=== PATIENT | male | born 1945 | race Caucasian/White ===

== ENCOUNTER → 2016-11-01 | Outpatient (CLI) | payer OTHER ==
--- NOTE | 2016-11-01 09:53 | US ---
"Right Upper Quadrant Sonogram Indication: Elevated LFTs. Comparison: CT angiogram of the chest dated July 05, 2008. Findings: The normal-sized liver, measuring 13.2 cm in the midaxillary line, has normal echogenicity and minimally heterogeneous echotexture. An indeterminate 1.2 x 1.0 cm echogenic lesion with hypoecho ic center with internal blood flow present in the anterior segment of the right lobe of the liver. No intrahepatic biliary dilation. A benign calcified granuloma in the medial segment left lobe of the l iver is unchanged since 2007. The gallbladder contains minimal mobile viscous bile and sludge. No intraluminal stones, wall thicken ing, or sonographic Robertson sign. Common bile duct is normal caliber (4 mm). Portal vein is patent. The atherosclerotic abdominal aorta is mildly dilated measuring up to 2.6 cm A P. The right kidney is unremarkable. No hydronephrosis. The right kidney measures 10.3 cm in length x 5. 6 x 4.7 cm axially. A benign 3.3 cm cyst emanates off the superior pole of the right kidney and a tin y 0.5 cm cyst resides in the central renal pelvis. No free fluid. The imaged portions of the pancreatic neck, head, and central body are normal. The pa ncreatic tail is obscured by bowel gas. Impression: 1. Minimally heterogeneous liver without biliary dilation. 2. Indeterminate 1.2 cm lesion in the right lobe of the liver may represent an atypical hemangioma. A dditional imaging is necessary to optimally characterize. Additional imaging could consist of MRI of the abdomen without and with IV contrast or multiphase CT of the abdomen with contrast. 3. Minimal gallbladder sludge. No cholelithiasis or common bile duct stone. A Follow-Up Required test result has been communicated via the [employer] | Critical Result syst em on 11/01/2016 9:47, Message ID [id number]."
== END ==
LOC: BMCIMAGING 08:31
PROVIDERS: ATTEND Internal Medicine
DX: R74.8 Abnormal levels of other serum enzymes (principal); R93.2 Abnormal findings on diagnostic imaging of liver and biliary tract

== ENCOUNTER 2018-05-23 10:00 | Inpatient (IN) | payer OTHER ==
[2018-05-23] MEDS ORDERED: IOPAMIDOL (ISOVUE 370) 100 ML BTL IV ONE (10:34)
--- NOTE | 2018-05-23 11:39 | EDPHY ---
H & P Time Seen by Provider: 05/23/18 10:12 HPI/ROS: HPI Speech slurring. 72-year-old male by ambulance. The patient presents with slurred speech and no other complaints. Onset yesterday at 12 noon. He denies headache. He has not had any loss of sensation or weakness in his extremities. No changes in vision. No balance problems or difficulty walking. No vertigo. He is not on antiplatelet or anticoagulant medication. ROS: Constitutional: No fever, no chills. As above. Eyes: No discharge. No changes in vision. ENT: No sore throat. No nasal congestion or rhinorrhea. Respiratory: No cough. No shortness of breath. Cardiac: No chest pain, no palpitations. Gastrointestinal: No abdominal pain, no vomiting, no diarrhea. Genitourinary: No hematuria. No dysuria or increased frequency with urination. Musculoskeletal: No back pain. No neck pain. No myalgias or arthralgias. Skin: No rashes. Neurological: No headache. No focal weakness or altered sensation. Past medical history: Hyperlipidemia. Takes Lipitor. Social history: Nonsmoker. No alcohol. Here by himself. Physical Exam: General Appearance: Alert, no distress. This patient is responding to questions appropriately and in full sentences. The patient states that he still has some slurring of his speech which is subtle but present. This patient appears well-hydrated and well-nourished. Eyes: Pupils equal and round no pallor or injection. No lid edema, erythema or injection. No photophobia. No nystagmus. ENT, Mouth: Mucous membranes are moist. The pharyngeal tissues are unremarkable. No edema or swelling. No asymmetry suggestive of abscess. No erythema or exudates. No tongue lacerations or abrasions. Respiratory: There are no retractions, lungs are clear to auscultation with good air movement bilaterally. Cardiovascular: Regular rate and rhythm. No murmur. Gastrointestinal: Abdomen is soft and nontender, no masses, bowel sounds normal. No focal tenderness at McBurney's point. No Robertson sign. Neurological: Motor sensory function is grossly intact. Cranial nerves are normal. Cerebellar function normal. Gait is normal. Skin: Warm and dry, no rashes. Musculoskeletal: Neck is supple and nontender. No pain on flexion of the neck. Extremities are symmetrical. All joints range without pain or impingement. Psychiatric: No agitation. No depression. Database: EKG: EKG time is 10:10 a.m.; EKG shows a sinus rhythm with a ventricular rate of 67. Right bundle branch block and left anterior fascicular block noted. Probable left ventricular hypertrophy. The TX, QRS, QT intervals are within normal limits. There are no ST-T wave changes indicative of ischemic or injury pattern. No evidence of right heart strain. Interpreted by me. Imaging: CT brain without contrast and CTA of brain and neck: Negative. Results were discussed with staff radiologist Dr. Belle Campos. MRI brain without contrast: Significant for a small acute infarct posterior inferior left frontal lobe. Results were discussed with staff radiologist Dr. Bradly Bernal. Procedures: Emergency department course: Triage vital signs reviewed. He is moderately hypertensive. IV was placed. He was placed on a satellite project site monitor. EKG obtained and reviewed by myself. He consents to CT imaging. 11:20 a.m., patient re-evaluated. Resting comfortably at this time. Repeat neurologic Assessment is nonfocal. No significant change in his speech. He is responding to questions appropriately and in full sentences. I discussed results of his CT imaging. MRI of brain without contrast will be obtained to evaluate for possible small infarct. He endorses. He will be given aspirin. 1:55 p.m., patient re-evaluated, resting comfortably at this time. Results of MRI discussed and diagnosis of small CVA discussed. Repeat neurologic assessment on the patient is unchanged from prior. Neurology paged. 2:05 p.m., spoke with on-call neurologist Dr. Hilario Becerril, case discussed with him in detail, we will admit the patient to the hospitalist service. He will consult on further management. Echocardiogram to be obtained. This plan was discussed with the patient and his was not present in the wound. He endorses. Hospitalist paged. 2:30 p.m., spoke with on-call hospitalist . Case discussed in detail with her. She accepts this patient for admission. Hospitalist team and Neurology will follow up on results of echocardiogram. Patient admitted in stable condition. No change in neurologic condition from above. Differential Diagnosis: The differential diagnosis on this patient includes but is not limited to CVA, TIA, metabolic abnormality, medication reaction. This represents a partial list of diagnoses considered. These considerations are based on history, physical exam, past history, reassessment and diagnostic testing. Smoking Status: Never smoked Constitutional: Initial Vital Signs Temperature (C) 36.8 C 05/23/18 10:04 Heart Rate 77 05/23/18 10:04 Respiratory Rate 16 05/23/18 10:04 Blood Pressure 173/85 H 05/23/18 10:04 O2 Sat (%) 97 05/23/18 10:04 O2 Delivery Mode Room Air Allergies/Adverse Reactions: No Known Allergies Allergy (Verified 05/23/18 14:28) Home Medications: Medication Instructions Recorded PARoxetine HCL [Paxil 20mg (*)] 20 mg PO SUTUTH 05/23/18 Pseudoephedrine HCl [Sudafed 12 120 mg PO DAILY PRN 05/23/18 Hour 120mg (*)] Simvastatin [Zocor] 20 mg PO MOWEFRSA 05/23/18 diphenhydrAMINE [Benadryl 25 MG 25 mg PO HS 05/23/18 (*)] Medical Decision Making - Data Points Medications Given: Aspirin (Aspirin) 325 mg PO DAILY [facility] Stop: 11/19/18 17:29 Last Admin: 05/24/18 09:10 Dose: 325 mg Atorvastatin Calcium (Lipitor) 40 mg PO DAILY ESTELLE Stop: 11/20/18 08:59 Last Admin: 05/24/18 09:10 Dose: 40 mg Diphenhydramine HCl (Benadryl) 25 mg PO HS ESTELLE Stop: 11/19/18 20:59 Last Admin: 05/23/18 20:07 Dose: 25 mg Enoxaparin Sodium (Lovenox) 40 mg SC DAILY ESTELLE Stop: 11/20/18 08:59 Last Admin: 05/24/18 09:10 Dose: 40 mg Lisinopril (Zestril) 10 mg PO DAILY ESTELLE Stop: 11/20/18 08:59 Last Admin: 05/24/18 09:10 Dose: 10 mg Point of Care Test Results: Chemistry 05/23/18 05/23/18 10:20 10:18 POC Sodium 143 mEq/L mEq/L (135-145) POC Potassium 3.9 mEq/L mEq/L (3.3-5.0) POC Chloride 107 mEq/L mEq/L (97-110) POC BUN 25 mg/dL H mg/dL (7-23) POC Creatinine 1.3 mg/dL mg/dL (0.7-1.3) POC Glucose 137 mg/dL H mg/dL (70-100) POC Troponin I 0.00 ng/mL ng/mL (0.00-0.08) ISTAT H&H 05/23/18 10:20 POC Hgb 12.6 gm/dL L gm/dL (13.7-17.5) POC Hct 37 % L % (40-51) Departure - Departure Disposition: [facility] Inpatient Acute Clinical Impression: Speech disturbance, CVA (cerebral vascular accident) Condition: Fair
[2018-05-23] MEDS ORDERED: ACETAMINOPHEN 325 MG TAB PO PRN (15:42)
[2018-05-23] MEDS ORDERED: HYDROCODONE/APAP 5/325 TAB PO PRN (15:42)
[2018-05-23] MEDS ORDERED: ONDANSETRON DISINTEGRATING 4 MG TAB PO PRN (15:42)
[2018-05-23] MEDS ORDERED: PROMETHAZINE HCL 25 MG/ML INJ IVP PRN (15:42)
[2018-05-23] MEDS ORDERED: oxyCODONE IR 5 MG TAB PO PRN (15:42)
[2018-05-23] MEDS ORDERED: ONDANSETRON 4 MG/2 ML VIAL IVP PRN (15:42)
[2018-05-23] MEDS ORDERED: PSEUDOEPHEDRINE HCL 120 MG EXT REL TAB PO PRN (15:47)
[2018-05-23] MEDS: ASPIRIN 325 MG TAB PO SCH (18:07)
--- NOTE | 2018-05-23 18:59 | PDGENHP ---
History and Physical - Chief Complaint difficulty speaking - History of Present Illness 72 yo M with PMH of HLD presenting with complaints of difficulty speaking and some facial asymetry since yesterday around noon. He notes he was at work when this began, and it began abruptly. He states that he noticed that he was having trouble ordering food, that the words came out sounding slurred. He otherwise felt well with no numbness or weakness, no visual changes. He was able to eat lunch and dinner without issues. He went home and his was concerned that he may be having a stroke given his ongoing speech difficulty and she felt that his face appeared to be drooping on one side. This morning when his symptoms remained unchanged they decided to come to the hospital for further evaluation. He has never had similar issues in the past. History Information - Allergies/Home Medication List Allergies/Adverse Reactions: No Known Allergies Allergy (Verified 05/23/18 14:28) Home Medications: PARoxetine HCL [Paxil 20mg (*)] 20 mg PO SUTUTH 05/23/18 [Last Taken 05/22/18] Pseudoephedrine HCl [Sudafed 12 Hour 120mg (*)] 120 mg PO DAILY PRN 05/23/18 [ Last Taken Unknown] Simvastatin [Zocor] 20 mg PO MOWEFRSA 05/23/18 [Last Taken 05/21/18] diphenhydrAMINE [Benadryl 25 MG (*)] 25 mg PO HS 05/23/18 [Last Taken 05/22/18] I have personally reviewed and updated: family history, medical history, social history, surgical history - Past Medical History hyperlipidemia - Surgical History Reports: no pertinent surgical hx - Family History Additional family history: Notes his family history is significant only for everyone being very healthy, father late in life had DM - Social History Smoking Status: Never smoked Alcohol Use: Rarely Drug Use: None Additional social history: x 45 years, at bedside Review of Systems Review of Systems: ROS: 10pt was reviewed & negative except for what was stated in HPI & below Physical Exam Physical Exam: Temp Pulse Resp BP Pulse Ox 36.7 C 61 24 H 187/75 H 100 05/23/18 15:58 05/23/18 15:58 05/23/18 15:58 05/23/18 15:58 05/23/18 15:58 Constitutional: no apparent distress, appears nourished Eyes: PERRL, anicteric sclera Ears, Nose, Mouth, Throat: moist mucous membranes, hearing normal Cardiovascular: regular rate and rhythym, no murmur, rub, or gallop, No edema Respiratory: no respiratory distress, no rales or rhonchi Gastrointestinal: normoactive bowel sounds, soft, non-tender abdomen Genitourinary: No hui in urethra Skin: warm, normal color Musculoskeletal: full muscle strength, no muscle tenderness Neurologic: AAOx3, facial droop, other (dysarthric speech) Psychiatric: interacting appropriately, not anxious, not encephalopathic Lab Data & Imaging Review POC Hgb 12.6 gm/dL (13.7-17.5) L 05/23/18 10:20 POC Hct 37 % (40-51) L 05/23/18 10:20 POC Sodium 143 mEq/L (135-145) 05/23/18 10:20 POC Potassium 3.9 mEq/L (3.3-5.0) 05/23/18 10:20 POC Chloride 107 mEq/L (97-110) 05/23/18 10:20 POC BUN 25 mg/dL (7-23) H 05/23/18 10:20 POC Creatinine 1.3 mg/dL (0.7-1.3) 05/23/18 10:20 POC Glucose 137 mg/dL (70-100) H 05/23/18 10:20 POC Troponin I 0.00 ng/mL (0.00-0.08) 05/23/18 10:18 Visualized and Interpreted imaging results: Yes Interpretation: Brain MRI: moderate to severe periventricular and white matter changes; acute lacunar infarct in post. inf. frontal lobe. Head/neck CTA: negative Visualized and Interpreted EKG results: Yes EKG Interpretation: Positive for: normal sinsus rhythm, right bundle branch block Assessment & Plan Assessment: Speech disturbance (Acute) CVA (cerebral vascular accident) (Acute) 72 yo M with dysarthria and facial droop present since yesterday found to have likely acute CVA # acute CVA: noted in left frontal lobe on MRI and while subtle on imaging would be c/w his presenting complaints. W/u including head/neck CTA negative so far for etiology for cva. Will obtain echo, lipid panel, Hgb A1c and monitor on telemetry. Started on asa. Neurology consulted. 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 # HLD : on simvastatin 3 days a week normally, will check lipid panel and discussed with him that his statin therapy will need to be intensified # anemia: noted on POC hgb/hct to be mildly anemic, full labs not drawn in ER, will order and f/u # IP status, given high risk presenting illness will likely require > 48 hours stay for eval/mgmt of above Patient new to my care. Old records reviewed and summarized as above. Care plan reviewed with ER doctor as above, further hx obtained from patients present at bedside.
--- NOTE | 2018-05-23 19:13 | GCON ---
[f rep st] CONSULTATION NEUROLOGIC CONSULTATION. REFERRING PHYSICIAN: Brian Daniel MD HISTORY OF PRESENT ILLNESS: Mr. Gayle is a 72-year-old gentleman, who I am asked to see in neurologi c consultation regarding acute onset of slurred speech yesterday around 11:30 in the morning. He was going to order some lunch, and had trouble with his speech in the form of slurring, but did not have word-finding difficulties. This has persisted until he came to the hospital earlier today just befo re noon. His noticed it last night, but no other symptoms were evident, and they decided to sim ply monitor it. When it did not go away, they decided to come to the hospital, which led to a head C T which was negative for acute stroke, but an MRI showed a small lacunar infarction in the left deep white matter. He has subsequently been started on aspirin therapy. He was already on a statin for h yperlipidemia. He tells me he has had some borderline hypertension, which is being monitored, but is not on blood pressure medications. He has never had a TIA or stroke in the past. He said he really was not sure what this was, and was surprised to think about a stroke. In any case, he has otherwis e been doing well with no fever, chills, nausea, vomiting, or diarrhea. No chest pain, palpitations, or shortness of breath. A few weeks ago, he had a little bit of headache, but nothing severe. PAST MEDICAL HISTORY: Notable for the hyperlipidemia. FAMILY HISTORY: Noncontributory. MEDICATIONS: When he came to the hospital he was on: 1. Paxil. 2. Zocor. 3. Sudafed. 4. Benadryl as needed in the evenings. 5. He is now on aspirin 325 mg daily, and continuing his statin therapy. ALLERGIES: None. REVIEW OF SYSTEMS: Otherwise, a 10-point review of systems was completed, and unremarkable except fo r that noted above. PHYSICAL EXAM: VITAL SIGNS: Blood pressure is 187/75, pulse of 61, respirations 24, temperature 36. 7. GENERAL: He is well-developed, in no acute distress. NECK: Supple with no bruits or masses. C ARDIAC: Regular rate and rhythm. No murmur. NEUROLOGIC: He is awake, alert, attentive with clear fluent speech and normal cognition. Pupils 3 mm and reactive. Extraocular movements are intact. No visual field loss. Normal facial sensation and strength. I do not see any definite asymmetry in fa cial movements. He has a mild, but definite persistent dysarthria. Tongue protrudes midline. Heari ng is preserved. Motor exam: Normal muscle bulk and tone with 5/5 strength and no abnormal movement . Sensation is preserved for temperature and light touch. Reflexes are 2+ and symmetric. IMAGING: I have reviewed all of his diagnostic studies as outlined above. He does not have any larg e vessel stenoses. LABS: Hematocrit is 37%. Electrolytes unremarkable. IMPRESSION: The patient has an acute ischemic stroke, most likely lacunar, related to small-vessel d isease from atherosclerosis with risk factors of hyperlipidemia, and age, and perhaps borderline hype rtension. We do not see any large vessel stenoses. A cardioembolic source is low probability, but i t is appropriate to obtain echocardiogram, which will be done tomorrow. He will remain on monitoring over the next 24 hours, and we could consider more prolonged monitoring perhaps, but low risk of arr hythmia. The patient will have speech therapy tomorrow. Once evaluations are completed, he is likel y to be able to be discharged tomorrow. We had a good discussion about risk factor, and what to look for that would lead to coming to the hospital again in the future. Total unit time of 70 minutes. He has an NIH Stroke Scale of 1. /[id number]/MODL
[2018-05-23 20:13] LABS: PLATELET COUNT 210 10^3/uL (150-400)
--- NOTE | 2018-05-23 20:35 | CPEKG ---
Test Reason : OPEN Blood Pressure : / mmHG Vent. Rate : 067 BPM Atrial Rate : 066 BPM P-R Int : 196 ms QRS Dur : 135 ms QT Int : 429 ms P-R-T Axes : 053 -64 035 degrees QTc Int : 453 ms Sinus rhythm RBBB and LAFB Left ventricular hypertrophy Confirmed by Arsalan De Luna ([id number]) on 05/23/2018 8:35:03 PM Referred By: Confirmed By:Arsalan De Luna
[2018-05-23] MEDS ORDERED: diphenhydrAMINE 25 MG CAP PO SCH (21:00)
--- NOTE | 2018-05-24 06:47 | PDMN ---
Medical Necessity Medical necessity: Pt meets inpt criteria per MD order and [facility] M-83, Stroke, Ischemic, 2 days. Est LOS>2 MN for eval/ management of acute ischemic stroke, most likely lacunar, related to small-vessel from atherosclerosis. Pt presented with speech difficulty and facial asymmetry, hypertensive w/BP up to 187/75. Brain MRI confirms acute lacunar infarct. Neuro consult, SP/PT/OT evals pending , ECHO pending. High risk presenting illness requiring inpt care.
[2018-05-24 07:26] VITALS: BP 130/105
--- NOTE | 2018-05-24 08:23 | NEUROPROG ---
Assessment: Total unit time 15 min. The patient has experienced stroke with mild dysarthria which is a about the same compared to yesterday or slightly improved. Echocardiogram is pending. Assuming nothing unusual was found then he can be discharged and follow up with me in 1 month in the office and continue on daily aspirin and daily statin therapy. Subjective: The patient is reporting no new problems overnight. He feels his speech is probably little bit better. Objective: Vital Signs Temp Pulse Resp BP Pulse Ox 36.7 C 81 16 130/105 H 98 05/24/18 00:02 05/24/18 07:26 05/24/18 07:26 05/24/18 07:26 05/24/18 07:26 Laboratory Results 05/23/18 20:00 05/23/18 20:00 He is alert and attentive with mild dysarthria. Allergies/Adverse Reactions: No Known Allergies Allergy (Verified 05/23/18 14:28)
[2018-05-24] MEDS ORDERED: ATORVASTATIN CALCIUM 10 MG TAB PO SCH (09:00)
[2018-05-24] MEDS ORDERED: LISINOPRIL 10 MG TAB PO SCH (09:00)
[2018-05-24] MEDS ORDERED: ENOXAPARIN 40 MG/0.4 ML SYR SC SCH (09:00)
[2018-05-24] MEDS ORDERED: ATORVASTATIN CALCIUM 40 MG TAB PO SCH (09:00)
[2018-05-24] MEDS ORDERED: ASPIRIN 81 MG CHEWABLE TAB PO SCH (09:00)
[2018-05-24] MEDS: ASPIRIN 325 MG TAB PO SCH (09:10)
--- NOTE | 2018-05-24 11:37 | ASMTCMCOM ---
CM Note CM Note Notes: Patient admitted after suffering an acute CVA at home. He was seen by neurology today and will likely discharge soon with outpatient follow-up. PT/OT/MOTOR VEHICLE FIELD REPRESENTATIVE will also evaluate. Patient lives with his and is normally independent and healthy. Case Management will assist if any discharge needs are identified. Date Signed: 05/24/2018 10:32 AM Electronically Signed By:Maria Eugenia Jones RN
--- NOTE | 2018-05-24 11:43 | PDDCSUM ---
Discharge Summary Discharge Summary: Dates of service 05/23-05/24/18 Consultations: neurology Procedures performed: head CT, brain MRI, head/neck CTA 72 yo M with dysarthria and facial droop present since yesterday found to have likely acute CVA # acute CVA: noted in left frontal lobe on MRI likely lacunar infarct. W/u including head/neck CTA negative so far for etiology for cva. Will obtain echo, lipid panel, Hgb A1c and monitor on telemetry. Started on asa. Neurology consulted. TECHNOLOGY LEAD evaluated and cleared for discharge. # HTN: patient denies hx of htn in the past but has had elevated bp since being here and with lacunar infarct this is likely underlying risk factor. dc on lisinopril, will need to f/u with PCP to determine if dose needs to be increased # HLD : on simvastatin 3 days a week normally, LDL above goal, will change to full dose atorvastatin # anemia: noted on POC hgb/hct to be mildly anemic, recommend op f/u DC home f/u with neurology and PCP in next week > 35 min spent in dc of patient more than half in coordination of care Patient improved more quickly than expected leading to early discharge
--- NOTE | 2018-05-24 12:32 | ECHO ---
[email or web address] [address] [address] Main: [phone] Fax: Transthoracic Echocardiogram Name: DAMARIS THOMASON MR#: [id number] Study Date: 05/24/2018 Study Time: 08:22 AM Date of : 1945 Age: 72 year(s) Height: 167.6 cm (66 in.) Weight: 80.74 kg (178 lb.) BSA: 1.9 m2 Gender: Male Examination: Echo with Agitated Saline Indication: Cerebrovascular: prior CVA, Aphasia Image Quality: Contrast: Requested by: Brian Daniel BP: 140 mmHg/68 mmHg Heart Rate: Rhythm: Normal sinus rhythm Indication: Cerebrovascular: prior CVA, Aphasia Procedure Staff Biochemistry Technician: Jesus Campbell RDCS Reading Physician: Paul Curran MD Requesting Provider: Conclusions: Normal size left ventricle. No LV hypertrophy. Normal global systolic LV function. EF is 68 %. No regional wall motion abnormality. An agitated saline study was performed and was negative for intracardiac shunting. Trivial mitral valve regurgitation. There is mild to moderate calcification of the aortic valve with moderate aortic insufficiency.. The tricuspid valve is normal in appearance and function. Mild tricuspid regurgitation is present. Measurements: Chambers Valvular Assessment AV/MV Valvular Assessment TV/PV Normal Normal Normal Name Value Range Name Value Range Name Value Range Ao Radha (MM): 3.4 cm (2.2 cm-3.7 AV Vmax: 2.08 m/s (1 m/s-1.7 TR Vmax: 2.40 mm/s ( - ) cm) m/s) TR PGmax: 23 mmHg ( - ) IVSd (2D): 0.9 cm (0.6 cm-1.1 AV maxP mmHg ( - ) syst. PAP: 28 mmHg ( - ) cm) AV meanP mmHg ( - ) PV Vmax: 0.68 m/s (0.6 m/s-0.9 LVDd (2D): 4.8 cm (4.2 cm-5.9 MICHEL (VTI): 1.5 cm ( - ) m/s) cm) AR (PHT): 865 ms ( - ) PV PGmax: 2 mmHg ( - ) LVDs (2D): 3.0 cm (2.1 cm-4 MV E Vmax: 0.67 m/s ( - ) cm) MV A Vmax: 1.06 m/s ( - ) LVPWd (2D): 0.9 cm (0.6 cm-1 cm) MV E/A: 0.63 ( - ) LVOTd 2.2 cm 2.2 cm mm MV meanP mmHg ( - ) LVEF (2D): 68 (>=54 %) MVA (Vmax): 1.9 m/s ( - ) Continued Measurements: Chambers Valvular Assessment AV/MV Valvular Assessment TV/PV Patient: DAMARIS THOMASON Study Date: 05/24/2018 Page 1 of 2 08:22 AM Name Value Name Value Name Value LADs Lon.5 cm MV VTI: 38.50 cm CVP (est.): 5 mmHg LA Area: 14.8 cm2 AR Vmax: 4.54 cm/s LA Volume: 37 ml AR ERO: 0.120 cm2 LA Volume Index: 19.5 ml/m2 AR PISA radius: 0.5 cm AR Reg. Volume: 32.0 ml AR Reg. Fraction: 44 % AR VTI: 266.0 cm Findings: Left Ventricle: Normal size left ventricle. No LV hypertrophy. Normal global systolic LV function. EF is 68 %. No regional wall motion abnormality. Diastolic dysfunction is present. . Right Ventricle: Normal size right ventricle. Normal RV function. Left Atrium: The left atrium is normal in size. An agitated saline study was performed and was negative for intracardiac shunting. Right Atrium: The right atrium is normal in size. Mitral Valve: The mitral valve is normal in appearance and function. Trivial mitral valve regurgitation. No mitral stenosis is present. Aortic Valve: There is mild to moderate calcification of the aortic valve with moderate aortic insufficiency.. Tricuspid Valve: The tricuspid valve is normal in appearance and function. Mild tricuspid regurgitation is present. The pulmonary artery pressure is normal. Pulmonic Valve: Pulmonary valve not well visualized. Aorta: The aorta is normal. Pericardium: No pericardial effusion. (No Signature Object) Patient: DAMARIS THOMASON Study Date: 05/24/2018 Page 2 of 2 08:22 AM [id number]
[2018-05-24] MEDS ORDERED: PARoxetine HCL 20 MG TAB PO SCH (15:47)
== END 2018-05-24 12:15 | disposition home or self-care (01) | DRG 66 ==
LOC: F2N 16:00 → OBSVTOIN 19:32
PROVIDERS: ADMIT Internal Medicine; ATTEND Internal Medicine
DX: I63.8 Other cerebral infarction (principal); E78.5 Hyperlipidemia, unspecified; D64.9 Anemia, unspecified; I67.2 Cerebral atherosclerosis
CPT/HCPCS: 82435-PO; 82565-PO; 82947-PO; 84132-PO; 84295-PO; 84484-PO; 84520-PO; 85014-PO; 92523-GN; 92610-GN; 97161-GP; J1650; Q9967